=== PATIENT | female | born 1940 | race Caucasian/White ===

== ENCOUNTER 2023-10-23 14:42 | Outpatient (AMB) | payer MEDICARE, SELFPAY ==
--- NOTE | 2023-10-23 14:52 | A.OFFVIS_ITS ---
Vital Signs 10/23/23 14:54 Height 5 ft 3 in Weight 168 lb 10.458 oz BMI 29.9 BP 138/70 Blood Pressure Location Lt brachial Position Sitting Pulse 80 Pulse Source Pulse Oximeter Pulse Oximetry (%) 96 Oxygen Delivery Method Room Air Intake Visit Reasons: Shortness of breath Functional Mental Disability Teacher Required: No Allergies diphenhydramine [From Benadryl] Adverse Reaction (Severe, Verified 10/23/23 14:58) Hallucinations HPI Comments Details: The patient is here for pulmonary evaluation. The patient is a an 83 year woman presenting with worsening dyspnea on exertion. The patient states that she does have history sleep apnea. She been on CPAP for many years with good response. She has been very adherent to the therapy. In addition to that she had been noticing lower extremity edema. She had been on her daughter's house and all of a sudden she was having some increasing shortness of breath and at that point she called her primary care doctor who recommended she go to the ER. This was back in 08/07/2023. In the ER she did undergo a CTA which I personally reviewed with the patient. 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 In all her blood work was reassuring. A brain atretic peptide however was not checked always that I could find. The dolores isacc did have a cardiac workup with her marketing data specialist. Per the patient, the results were reassuring as well. The patient does not use inhalers. Back in 2019 when she had COVID the patient was prescribed an inhaler but she never used it. She has not had recent pulmonary function studies. She was exposed to secondhand smoke and smoking in the past. In view of the small airways disease on the CT scan will be reasonable to measure her pulmonary function studies. The patient may also be a good candidate for pulmonary rehabilitation. In the meantime she is walking on her own. During the visit we did go for brief walking oximetry. The heart rate went up to 115 beats per minute with minimal activity and dyspnea score is elevated 5/10. Pulse ox was reassuring at 98%. We did talk about diastolic dysfunction. The patient is already making dietary indiscretions avoiding salt. In addition to that she does complaint of chronic sinusitis primarily on the right side. She did have a septoplasty for septal deviation that was resulting in significant maxillary sinusitis. Although after surgeries done never really improved. Still having significant congestion. She has also exposure to mold in her house. They are currently working on removing it. Will go ahead and request allergy testing to assess for potential precipitants to her significant chronic allergic rhinitis and cough. In addition to that she undergo pulmonary function studies. Will hold off any inhalers at this time. 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 Sinusitis Allergies Social History (Updated 10/23/23 @ 14:59 by ELVIS Lafleur) Patient Tobacco Use Status: Never used Tobacco Review of Systems Const Denies fever(s) Eyes Reports no additional complaints ENT Reports nasal congestion, Reports nasal discharge, Reports nasal obstruction, Reports post nasal drip and Reports sinus pressure Card Denies chest pain, Reports palpitations and Reports dyspnea on exertion Resp Reports cough, Reports dyspnea on exertion and Denies wheezing GI Reports no additional complaints Musc Reports no additional complaints Skin/Breast Denies rash Endo Reports palpitations Hair/Lymph Reports no additional complaints Aller/Immun Denies wheezing Physical Exam Vital Signs: Last Vital Signs Pulse 80 10/23/23 14:54 BP 138/70 10/23/23 14:54 Pulse Ox 96 10/23/23 14:54 Oxygen Delivery Method Room Air 10/23/23 14:54 BMI result Body Mass Index 29.9 Const General: comfortable HEENT Head: Yes normocephalic Neck Neck: Yes supple Chest Chest palpation & inspection: normal inspection of the chest Resp Effort & Inspection: normal respiratory effort Auscultation: clear to auscultation bilaterally Cardio Rate: tachycardic Rhythm: regular rhythm Heart sounds: S1 normal heart sound present and S2 normal heart sound present GI Palpation (GI): Soft to palpation Skin General skin exam: no rashes or lesions noted Extrem General: Yes no clubbing, cyanosis or edema Assessment & Plan Assessment & Plan (1) Dyspnea: Comment: multifactorial. Possible small airways disease and underlying diastolic dysfunction with an elevated HR with minimal activity Code(s): R06.00 - Dyspnea, unspecified Category: Medical Qualifiers: Dyspnea type: dyspnea on exertion Qualified Code(s): R06.09 - Other forms of dyspnea (2) Allergies: Code(s): T78.40XA - Allergy, unspecified, initial encounter Category: Medical Qualifiers: Encounter type: initial encounter Qualified Code(s): T78.40XA - Allergy, unspecified, initial encounter (3) Sinusitis: Code(s): J32.9 - Chronic sinusitis, unspecified Category: Medical Qualifiers: Sinusitis location: maxillary Chronicity: chronic Qualified Code(s): J32.0 - Chronic maxillary sinusitis (4) WAYNE on CPAP: Code(s): G47.33 - Obstructive sleep apnea (adult) (pediatric) Category: Medical (5) Chronic cough: Code(s): R05.3 - Chronic cough Category: Medical (6) Pulmonary nodules: Comment: stable when compared to 2017 Code(s): R91.8 - Other nonspecific abnormal finding of lung field Category: Medical (7) 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, unspecified Category: Medical Plan Bloodwork/allergy testing nasal spray therapy PFTs Pulmonary rehab F/U 2 months Orders: Orders Complete Blood Count Auto Diff Today G47.33 - Obstructive sleep apnea (adult) (pediatric), J32.9 - Chronic sinusitis, unspecified, J44.89 - Other specified chronic obstructive pulmonary disease, R05.3 - Chronic cough, T78.40XA - Allergy, unspecified, initial encounter, U09.9 - Post COVID-19 condition, unspecified Immunoglobulin E Today G47.33 - Obstructive sleep apnea (adult) (pediatric), J32.9 - Chronic sinusitis, unspecified, J44.89 - Other specified chronic obstructive pulmonary disease, R05.3 - Chronic cough, T78.40XA - Allergy, unspecified, initial encounter, U09.9 - Post COVID-19 condition, unspecified Resp Allergy Profile Region I Today G47.33 - Obstructive sleep apnea (adult) (pediatric), J32.9 - Chronic sinusitis, unspecified, J44.89 - Other specified chronic obstructive pulmonary disease, R05.3 - Chronic cough, R91.1 - Solitary pulmonary nodule, T78.40XA - Allergy, unspecified, initial encounter, U09.9 - Post COVID-19 condition, unspecified Erythrocyte Sedimentation Rate Today G47.33 - Obstructive sleep apnea (adult) (pediatric), J32.9 - Chronic sinusitis, unspecified, J44.89 - Other specified chronic obstructive pulmonary disease, R05.3 - Chronic cough, T78.40XA - Allergy, unspecified, initial encounter, U09.9 - Post COVID-19 condition, unspecified Pulmonary Rehab Today G47.33 - Obstructive sleep apnea (adult) (pediatric), J32.9 - Chronic sinusitis, unspecified, J44.89 - Other specified chronic obstructive pulmonary disease, R05.3 - Chronic cough, T78.40XA - Allergy, unspecified, initial encounter, U09.9 - Post COVID-19 condition, unspecified PFT pulmonary function test Today R06.00 - Dyspnea, unspecified Medications: New fluticasone propionate 50 mcg/actuation 2 sprays intranasal DAILY 30 days 15.8 mL 11RF J31.0 - Chronic rhinitis Coding Level of Care Code New Pt Level 4 (00835) Diagnoses Dyspnea on exertion R06.09 Dyspnea type: dyspnea on exertion Allergy, initial encounter T78.40XA Encounter type: initial encounter Chronic maxillary sinusitis J32.0 Sinusitis location: maxillary Chronicity: chronic WAYNE on CPAP G47.33 Chronic cough R05.3 Pulmonary nodules R91.8 [id number] syndrome U09.9 Time Spent (min) 45
[2023-10-23 14:54] VITALS: BP 138/70; PULSE 80; O2SAT 96; BMI 29.9
== END 2023-10-23 15:30 | disposition home or self-care (01) ==
PROVIDERS: PCP Nurse Practitioner Family; Referring Provider Nurse Practitioner Family; Visit Provider Hospitalist
DX: R06.09 Other forms of dyspnea (principal); T78.40XA Allergy, unspecified, initial encounter; J32.0 Chronic maxillary sinusitis; G47.33 Obstructive sleep apnea (adult) (pediatric); R05.3 Chronic cough; R91.8 Other nonspecific abnormal finding of lung field; U09.9 Post COVID-19 condition, unspecified
CPT/HCPCS: 99204

== ENCOUNTER → 2023-10-23 14:42 | Outpatient (BNVA) | payer MEDICARE, SELFPAY | PROVIDERS: PCP Nurse Practitioner Family; Referring Provider Nurse Practitioner Family; Visit Provider Hospitalist | DX: J32.9 Chronic sinusitis, unspecified (principal); J44.89 Other specified chronic obstructive pulmonary disease; R06.02 Shortness of breath; G47.33 Obstructive sleep apnea (adult) (pediatric); R06.09 Other forms of dyspnea; J32.0 Chronic maxillary sinusitis; R91.8 Other nonspecific abnormal finding of lung field; U09.9 Post COVID-19 condition, unspecified; T78.40XA Allergy, unspecified, initial encounter; X58.XXXA Exposure to other specified factors, initial encounter; Z77.22 Contact with and (suspected) exposure to environmental tobacco smoke (acute) (chronic); Z99.89 Dependence on other enabling machines and devices | CPT/HCPCS: 99202 ==

== ENCOUNTER 2023-11-04 10:09 | Outpatient (REF) | payer MEDICARE, SELFPAY ==
[2023-11-04 10:19] LABS: MANUAL DIFF FLAG NO
[2023-11-04 11:09] LABS: Basophils Percent Auto 0.4 % (0-2); Eosinophils Absolute Auto 0.3 X10*3/uL (0.0-0.4); Eosinophils Percent Auto 4.4 % (0-4); Hematocrit 39.8 % (37.0-47.0); Hemoglobin 13.5 g/dl (12.0-16.0); Imm Gran Abs Auto 0.02 X10*3/uL (0.00-0.03); Imm Gran Pct Auto 0.3 % (0.0-0.4); Lymphocytes Absolute Auto 3.7 X10*3/uL (1.2-4.9); Lymphocytes Percent Auto 50.1 % (20-40); Mean Corpuscular HGB Conc 33.9 g/dl (31.0-35.0); Mean Corpuscular Hemoglobin 29.3 pg (27.0-33.0); Mean Corpuscular Volume 86.3 fL (80.0-98.0); Mean Platelet Volume 9.6 fL (9.4-12.3); Monocytes Absolute Auto 0.5 X10*3/uL (0.1-1.2); Monocytes Percent Auto 6.2 % (2-11); Neutrophils Absolute Auto 2.9 x10*3/uL (2.0-8.3); Neutrophils Percent Auto 38.6 % (45-73); Platelet Count 262 X10*3/uL (160-400); Red Blood Count 4.61 X10*6/uL (4.20-5.50); Red Cell Distribution Width 12.3 % (11.0-16.0); White Blood Count 7.4 X10*3/uL (4.8-10.8)
--- NOTE | 2023-11-04 11:30 | PFT_ITS ---
Flows: FEV1: 117 % of predicted at 2.15 L FVC: 134 % of predicted at 3.21 L FEV1/FVC: 67 % Bronchodilator response: Absent Volumes: Total lung capacity: 104 % of predicted at 4.86 L Residual volume: 81 % of predicted at 1.71 L Slow vital capacity: 126 % of predicted at 3.15 L Expiratory reserve volume: 101 % of predicted at 0.61 L Diffusion capacity: Mildly decreased Impression: Mild obstructive ventilatory defect with no bronchodilator response. Decreased diffusion capacity suggests emphysema. MTDD
[2023-11-04 11:48] LABS: Erythrocyte Sedimentation Rate 6 MM/HR (0-20)
[2023-11-09 02:57] LABS: Class Alternaria alternata 0; Class Aspergillus fumigatus 0; Class Bermuda Grass 0; Class Birch 0; Class Cat Dander 0; Class Cladosporium herbarum 0; Class Cockroach 0; Class Common Ragweed 0; Class Cottonwood 0; Class Derm. pterony 0; Class Dermatophagoides farinae 0; Class Dog Dander 0; Class Elm 0; Class Maple Box Elder 0; Class Mountain Cedar 0; Class Mouse Urine Protein 0; Class Mugwort 0; Class Oak 0; Class Penicillium crysogenum 0; Class Rough Pigweed 0; Class Sheep Sorrel 0; Class Sycamore 0; Class Timothy Grass 0; Class Walnut Tree 0; Class White Ash 0; Class White Mulberry 0; D001 IgE D pteronyssinus <0.10 kU/L; D002 - IgE D farinae <0.10 kU/L; E001 - IgE Cat Dander <0.10 kU/L; E005 - IgE Dog Dander <0.10 kU/L; E072-IgE Mouse Urine <0.10 kU/L; G002 IgE Bermuda Grass <0.10 kU/L; G006 - IgE Timothy Grass <0.10 kU/L; I006-IgE Cockroach, German <0.10 kU/L; Immunoglobulin E 52 kU/L (<OR=114); M001 IgE Penicillium chrysogen <0.10 kU/L; M002 - IgE Cladosporium herbar <0.10 kU/L; M003 - IgE Aspergillus fumigat <0.10 kU/L; M006 - IgE Alternaria alternat <0.10 kU/L; T001 IgE Maple/Box Elder <0.10 kU/L; T003 IgE Common Silver Birch <0.10 kU/L; T006 - IgE Cedar, Mountain <0.10 kU/L; T007 - IgE Oak, White <0.10 kU/L; T008 IgE Elm, American <0.10 kU/L; T010 - IgE Walnut <0.10 kU/L; T011 - IgE Maple Leaf Sycamore <0.10 kU/L; T014 - IgE Cottonwood <0.10 kU/L; T015 - IgE Ash, White <0.10 kU/L; T070 - IgE White Mulberry <0.10 kU/L; W001 - IgE Ragweed, Short <0.10 kU/L; W006 - IgE Mugwort <0.10 kU/L; W014 IgE Pigweed, Common <0.10 kU/L; W018 IgE Sheep Sorrel <0.10 kU/L
== END 2023-11-04 10:10 | disposition home or self-care (01) ==
LOC: HO.RESP 10:09
PROVIDERS: PCP Internal Medicine; Visit Provider Hospitalist
DX: R06.00 Dyspnea, unspecified (principal); T78.40XA Allergy, unspecified, initial encounter; J32.9 Chronic sinusitis, unspecified; J44.89 Other specified chronic obstructive pulmonary disease; U09.9 Post COVID-19 condition, unspecified; G47.33 Obstructive sleep apnea (adult) (pediatric); R05.3 Chronic cough; R91.1 Solitary pulmonary nodule
CPT/HCPCS: 36415; 82785; 85025; 85652; 86003; 94010; 94640; 94727; 94729

== ENCOUNTER → 2023-12-04 13:44 | Outpatient (REF) | payer MEDICARE, SELFPAY | LOC: HO.SL 13:44 | PROVIDERS: PCP Internal Medicine; Visit Provider Hospitalist | DX: G47.33 Obstructive sleep apnea (adult) (pediatric) (principal) | CPT/HCPCS: 95806 ==

== ENCOUNTER → 2023-12-04 19:00 | Outpatient (BNV) | payer MEDICARE, SELFPAY | PROVIDERS: PCP Internal Medicine; Visit Provider Internal Medicine | DX: G47.33 Obstructive sleep apnea (adult) (pediatric) (principal) | CPT/HCPCS: 95806 ==

== ENCOUNTER 2023-12-19 08:13 | Outpatient (AMB) | payer MEDICARE, SELFPAY ==
[2023-12-19 08:30] VITALS: BP 132/70; PULSE 71; O2SAT 98; BMI 30.3
--- NOTE | 2023-12-19 08:30 | MHC.OFFVIS ---
Vital Signs 12/19/23 08:30 Height 5 ft 3 in Weight 170 lb 13.732 oz BMI 30.3 BP 132/70 Blood Pressure Location Lt brachial Position Sitting Pulse 71 Pulse Source Pulse Oximeter Pulse Oximetry (%) 98 Oxygen Delivery Method Room Air Intake Visit Reasons: Allergies Tattoo Technician Required: No Allergies diphenhydramine [From Benadryl] Adverse Reaction (Severe, Verified 12/19/23 08:32) Hallucinations HPI Comments Details: The patient is a an 83 year woman presenting with worsening dyspnea on exertion. The patient states that she does have history sleep apnea. She been on CPAP for many years with good response. She has been very adherent to the therapy. In addition to that she had been noticing lower extremity edema. She had been on her daughter's house and all of a sudden she was having some increasing shortness of breath and at that point she called her primary care doctor who recommended she go to the ER. This was back in 08/07/2023. In the ER she did undergo a CTA which I personally reviewed with the patient. 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 In all her blood work was reassuring. A brain atretic peptide however was not checked always that I could find. The patient did have a cardiac workup with her counter cutter. Per the patient, the results were reassuring as well. The patient does not use inhalers. Back in 2019 when she had COVID the patient was prescribed an inhaler but she never used it. She has not had recent pulmonary function studies. She was exposed to secondhand smoke and smoking in the past. In view of the small airways disease on the CT scan will be reasonable to measure her pulmonary function studies. The patient may also be a good candidate for pulmonary rehabilitation. In the meantime she is walking on her own. During the visit we did go for brief walking oximetry. The heart rate went up to 115 beats per minute with minimal activity and dyspnea score is elevated 5/10. Pulse ox was reassuring at 98%. We did talk about diastolic dysfunction. The patient is already making dietary indiscretions avoiding salt. In addition to that she does complaint of chronic sinusitis primarily on the right side. She did have a septoplasty for septal deviation that was resulting in significant maxillary sinusitis. Although after surgeries done never really improved. Still having significant congestion. She has also exposure to mold in her house. They are currently working on removing it. Will go ahead and request allergy testing to assess for potential precipitants to her significant chronic allergic rhinitis and cough. In addition to that she undergo pulmonary function studies. Will hold off any inhalers at this time. 12/19/2023 the patient is here for a pulmonary follow-up visit. Overall she is doing little bit better. She is working closely with pulmonary rehabilitation and she is finding that is helping her dyspnea symptoms. The patient did have PFTs and we did review them. She appears to have a mild obstruction consistent mild COPD in addition to that the patient did not have any significant response to bronchodilators. She did have blood work done her eosinophils were slightly elevated suggesting allergies. However, no significant allergies found in her RAST panel. She is wondering all the potential allergens. She will need to get proper allergy testing for that to be further addressed. In the meantime the patient does complaint of sinus headaches and sinus pressure. Primarily in the right side which she did have surgery. She also uses a CPAP. Explained to her that using nasal CPAP will continue bloating potential secretions into her sinuses. We did talk about restarting sinus rinse prior to putting the CPAP on. Will also try to optimize her upper respiratory therapy. The patient will follow-up sometime in February. Also to note, she had a sleep study with mild WAYNE. 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 Sinusitis Allergies Social History (Updated 10/23/23 @ 14:59 by Symone King Edmundo) Patient Tobacco Use Status: Never used Tobacco Review of Systems Const Denies fever(s) Eyes Reports no additional complaints ENT Reports nasal congestion, Reports nasal discharge, Reports nasal obstruction, Reports post nasal drip and Reports sinus pressure Card Denies chest pain, Reports palpitations and Reports dyspnea on exertion Resp Reports cough, Reports dyspnea on exertion and Denies wheezing GI Reports no additional complaints Musc Reports no additional complaints Skin/Breast Denies rash Endo Reports palpitations Hair/Lymph Reports no additional complaints Aller/Immun Denies wheezing Physical Exam Vital Signs: Last Vital Signs Pulse 71 12/19/23 08:30 BP 132/70 12/19/23 08:30 Pulse Ox 98 12/19/23 08:30 Oxygen Delivery Method Room Air 12/19/23 08:30 BMI result Body Mass Index 30.3 Const General: comfortable HEENT Head: Yes normocephalic Neck Neck: Yes supple Chest Chest palpation & inspection: normal inspection of the chest Resp Effort & Inspection: normal respiratory effort Auscultation: clear to auscultation bilaterally Cardio Rate: tachycardic Rhythm: regular rhythm Heart sounds: S1 normal heart sound present and S2 normal heart sound present GI Palpation (GI): Soft to palpation Skin General skin exam: no rashes or lesions noted Extrem General: Yes no clubbing, cyanosis or edema Assessment & Plan Assessment & Plan (1) Dyspnea: Comment: multifactorial. Possible small airways disease and underlying diastolic dysfunction with an elevated HR with minimal activity Code(s): R06.00 - Dyspnea, unspecified Category: Medical Qualifiers: Dyspnea type: dyspnea on exertion Qualified Code(s): R06.09 - Other forms of dyspnea (2) Allergies: Code(s): T78.40XA - Allergy, unspecified, initial encounter Category: Medical Qualifiers: Encounter type: initial encounter Qualified Code(s): T78.40XA - Allergy, unspecified, initial encounter (3) Sinusitis: Code(s): J32.9 - Chronic sinusitis, unspecified Category: Medical Qualifiers: Chronicity: chronic Sinusitis location: maxillary Qualified Code(s): J32.0 - Chronic maxillary sinusitis (4) Asthma-COPD overlap syndrome: Comment: mild obstruction on PFTs Code(s): J44.89 - Other specified chronic obstructive pulmonary disease Category: Medical (5) WAYNE on CPAP: Code(s): G47.33 - Obstructive sleep apnea (adult) (pediatric) Category: Medical (6) Chronic cough: Code(s): R05.3 - Chronic cough Category: Medical (7) Pulmonary nodules: Comment: stable when compared to 2017 Code(s): R91.8 - Other nonspecific abnormal finding of lung field Category: Medical Plan nasal spray therapy, change from Fluticasone to Dymista start Singulair 1/2 tab first, then increase if needed consider DANIEL as needed consider pseudophed continue Pulmonary rehab F/U 2-3 months Medications: New montelukast 10 mg PO DAILY 30 days 30 tabs 11RF J45.909 - Unspecified asthma, uncomplicated azelastine-fluticasone 137-50 mcg/spray (Dymista) administer into each nostril 1 spray intranasal BID 30 days 23 grams 0RF Coding Level of Care Code Est Pt Level 4 (92933) Diagnoses Dyspnea on exertion R06.09 Dyspnea type: dyspnea on exertion Allergy, initial encounter T78.40XA Encounter type: initial encounter Chronic maxillary sinusitis J32.0 Chronicity: chronic Sinusitis location: maxillary Asthma-COPD overlap syndrome J44.89 WAYNE on CPAP G47.33 Chronic cough R05.3 Pulmonary nodules R91.8 Time Spent (min) 16
== END 2023-12-19 08:53 | disposition home or self-care (01) ==
PROVIDERS: PCP Internal Medicine; Visit Provider Hospitalist
DX: R06.09 Other forms of dyspnea (principal); T78.40XA Allergy, unspecified, initial encounter; J32.0 Chronic maxillary sinusitis; J44.89 Other specified chronic obstructive pulmonary disease; G47.33 Obstructive sleep apnea (adult) (pediatric); R05.3 Chronic cough; R91.8 Other nonspecific abnormal finding of lung field
CPT/HCPCS: 99214

== ENCOUNTER → 2023-12-19 08:13 | Outpatient (BNVA) | payer MEDICARE, SELFPAY | PROVIDERS: PCP Internal Medicine; Visit Provider Hospitalist | DX: J44.89 Other specified chronic obstructive pulmonary disease (principal); J32.0 Chronic maxillary sinusitis; G47.33 Obstructive sleep apnea (adult) (pediatric); R05.3 Chronic cough; R91.8 Other nonspecific abnormal finding of lung field; Z99.89 Dependence on other enabling machines and devices; Z77.22 Contact with and (suspected) exposure to environmental tobacco smoke (acute) (chronic); Z87.891 Personal history of nicotine dependence | CPT/HCPCS: 99212 ==

== ENCOUNTER 2024-02-19 10:56 | Outpatient (AMB) | payer MEDICARE, SELFPAY ==
--- NOTE | 2024-02-19 11:00 | MHC.OFFVIS ---
Vital Signs 02/19/24 11:01 Height 5 ft 3 in Weight 171 lb BMI 30.3 BP 128/64 Blood Pressure Location Rt brachial Position Sitting Pulse 94 Pulse Source Doppler Pulse Oximetry (%) 99 Oxygen Delivery Method Room Air Intake Visit Reasons: Shortness of breath Allergies diphenhydramine [From Benadryl] Adverse Reaction (Severe, Verified 12/19/23 08:32) Hallucinations HPI Comments Details: The patient is a an 84 year woman presenting with worsening dyspnea on exertion. The patient states that she does have history sleep apnea. She been on CPAP for many years with good response. She has been very adherent to the therapy. In addition to that she had been noticing lower extremity edema. She had been on her daughter's house and all of a sudden she was having some increasing shortness of breath and at that point she called her primary care doctor who recommended she go to the ER. This was back in 08/07/2023. In the ER she did undergo a CTA which I personally reviewed with the patient. 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 In all her blood work was reassuring. A brain atretic peptide however was not checked always that I could find. The patient did have a cardiac workup with her accounting clerk. Per the patient, the results were reassuring as well. The patient does not use inhalers. Back in 2019 when she had COVID the patient was prescribed an inhaler but she never used it. She has not had recent pulmonary function studies. She was exposed to secondhand smoke and smoking in the past. In view of the small airways disease on the CT scan will be reasonable to measure her pulmonary function studies. The patient may also be a good candidate for pulmonary rehabilitation. In the meantime she is walking on her own. During the visit we did go for brief walking oximetry. The heart rate went up to 115 beats per minute with minimal activity and dyspnea score is elevated 5/10. Pulse ox was reassuring at 98%. We did talk about diastolic dysfunction. The patient is already making dietary indiscretions avoiding salt. In addition to that she does complaint of chronic sinusitis primarily on the right side. She did have a septoplasty for septal deviation that was resulting in significant maxillary sinusitis. Although after surgeries done never really improved. Still having significant congestion. She has also exposure to mold in her house. They are currently working on removing it. Will go ahead and request allergy testing to assess for potential precipitants to her significant chronic allergic rhinitis and cough. In addition to that she undergo pulmonary function studies. Will hold off any inhalers at this time. 12/19/2023 the patient is here for a pulmonary follow-up visit. Overall she is doing little bit better. She is working closely with pulmonary rehabilitation and she is finding that is helping her dyspnea symptoms. The patient did have PFTs and we did review them. She appears to have a mild obstruction consistent mild COPD in addition to that the patient did not have any significant response to bronchodilators. She did have blood work done her eosinophils were slightly elevated suggesting allergies. However, no significant allergies found in her RAST panel. She is wondering all the potential allergens. She will need to get proper allergy testing for that to be further addressed. In the meantime the patient does complaint of sinus headaches and sinus pressure. Primarily in the right side which she did have surgery. She also uses a CPAP. Explained to her that using nasal CPAP will continue bloating potential secretions into her sinuses. We did talk about restarting sinus rinse prior to putting the CPAP on. Will also try to optimize her upper respiratory therapy. The patient will follow-up sometime in February. Also to note, she had a sleep study with mild WAYNE. 02/19/2024 the patient is here for a pulmonary follow-up visit. She is complaining about worsening sinus congestion. She has been having some difficulty specially based on the fact that she is using CPAP. She went to an urgent care and she was diagnosed with allergies and started on allergy medication although did not help. Still having significant sinus pressure. Sometimes which she rinses since her sinuses with saline it causes significant burning primarily in the back of her throat. She does have an ENT doctor that she sees in [place] and she will be seen him in a month. In the meantime will start treating her for sinusitis. If the patient is no better she can always come in and get sinus x-rays and also chest x-ray. The patient is okay holding her CPAP while she is recovering from his sinusitis. When she feels better she can go back on using CPAP as is affecting beneficial. She is tolerating the F30 mask well. She can also consider the F 40 mask in the future. 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 Sinusitis Allergies Social History (Updated 10/23/23 @ 14:59 by ELVIS Lafleur) Patient Tobacco Use Status: Never used Tobacco Review of Systems Const Denies fever(s) Eyes Reports no additional complaints ENT Reports nasal congestion, Reports nasal discharge, Reports nasal obstruction, Reports post nasal drip and Reports sinus pressure Card Denies chest pain, Reports palpitations and Reports dyspnea on exertion Resp Reports cough, Reports dyspnea on exertion and Denies wheezing GI Reports no additional complaints Musc Reports no additional complaints Skin/Breast Denies rash Endo Reports palpitations Hair/Lymph Reports no additional complaints Aller/Immun Denies wheezing Physical Exam Vital Signs: Last Vital Signs Pulse 94 02/19/24 11:01 BP 128/64 02/19/24 11:01 Pulse Ox 99 02/19/24 11:01 Oxygen Delivery Method Room Air 02/19/24 11:01 BMI result Body Mass Index 30.3 Const General: comfortable HEENT Head: Yes normocephalic General nose exam: Abnormal mucous membranes and turbinates present erythematous Face and sinus: Yes sinus tenderness Neck Neck: Yes supple Chest Chest palpation & inspection: normal inspection of the chest Resp Effort & Inspection: normal respiratory effort Auscultation: clear to auscultation bilaterally Cardio Rate: tachycardic Rhythm: regular rhythm Heart sounds: S1 normal heart sound present and S2 normal heart sound present GI Palpation (GI): Soft to palpation Skin General skin exam: no rashes or lesions noted Extrem General: Yes no clubbing, cyanosis or edema Assessment & Plan Assessment & Plan (1) Dyspnea: Comment: multifactorial. Possible small airways disease and underlying diastolic dysfunction with an elevated HR with minimal activity Code(s): R06.00 - Dyspnea, unspecified Category: Medical Qualifiers: Dyspnea type: dyspnea on exertion Qualified Code(s): R06.09 - Other forms of dyspnea (2) Allergies: Code(s): T78.40XA - Allergy, unspecified, initial encounter Category: Medical Qualifiers: Encounter type: initial encounter Qualified Code(s): T78.40XA - Allergy, unspecified, initial encounter (3) Sinusitis: Code(s): J32.9 - Chronic sinusitis, unspecified Category: Medical Qualifiers: Chronicity: chronic Sinusitis location: maxillary Qualified Code(s): J32.0 - Chronic maxillary sinusitis (4) Asthma-COPD overlap syndrome: Comment: mild obstruction on PFTs Code(s): J44.89 - Other specified chronic obstructive pulmonary disease Category: Medical (5) WAYNE on CPAP: Code(s): G47.33 - Obstructive sleep apnea (adult) (pediatric) Category: Medical (6) Chronic cough: Code(s): R05.3 - Chronic cough Category: Medical (7) Pulmonary nodules: Comment: stable when compared to 2017 Code(s): R91.8 - Other nonspecific abnormal finding of lung field Category: Medical Plan conitnue CPAP, F30 consider F40 nasal spray therapy, change from Fluticasone to Dymista Singulair consider DANIEL as needed start Doxy start prednisone low taper ok to hold CPAP while dealing with sinusitis completed Pulmonary rehab sinus xray if no better ENT f/u in [place] F/U 6 months Orders: Orders XR sinus min 3V Today J32.0 - Chronic maxillary sinusitis Medications: New doxycycline monohydrate 100 mg PO BID 14 days 28 tabs 0RF prednisone PO daily; Take 2 tabs daily x 5 days, then 1 tab daily x 5 days 10 days 15 tabs 0RF Coding Level of Care Code Est Pt Level 4 (97467) Diagnoses Dyspnea on exertion R06.09 Dyspnea type: dyspnea on exertion Allergy, initial encounter T78.40XA Encounter type: initial encounter Chronic maxillary sinusitis J32.0 Chronicity: chronic Sinusitis location: maxillary Asthma-COPD overlap syndrome J44.89 WAYNE on CPAP G47.33 Chronic cough R05.3 Pulmonary nodules R91.8 Time Spent (min) 16
[2024-02-19 11:01] VITALS: BP 128/64; PULSE 94; O2SAT 99; BMI 30.3
== END 2024-02-19 13:20 | disposition home or self-care (01) ==
PROVIDERS: PCP Nurse Practitioner Family; Visit Provider Hospitalist
DX: R06.09 Other forms of dyspnea (principal); T78.40XA Allergy, unspecified, initial encounter; J32.0 Chronic maxillary sinusitis; J44.89 Other specified chronic obstructive pulmonary disease; G47.33 Obstructive sleep apnea (adult) (pediatric); R05.3 Chronic cough; R91.8 Other nonspecific abnormal finding of lung field
CPT/HCPCS: 99214

== ENCOUNTER → 2024-02-19 10:56 | Outpatient (BNVA) | payer MEDICARE, SELFPAY | PROVIDERS: PCP Nurse Practitioner Family; Visit Provider Hospitalist | DX: R06.09 Other forms of dyspnea (principal); T78.40XA Allergy, unspecified, initial encounter; J32.0 Chronic maxillary sinusitis; G47.33 Obstructive sleep apnea (adult) (pediatric); J44.89 Other specified chronic obstructive pulmonary disease; R05.3 Chronic cough; R91.8 Other nonspecific abnormal finding of lung field; Z99.89 Dependence on other enabling machines and devices | CPT/HCPCS: 99212 ==

== ENCOUNTER 2024-03-06 08:41 | Outpatient (REF) | payer MEDICARE, SELFPAY ==
--- NOTE | ~2024-03-06 | XR_ITS ---
EXAMINATION: XR CHEST CLINICAL INFORMATION: R05.3 - Chronic cough. COMPARISON: 08/10/2021 x-ray chest, 10/15/2021 CT chest. TECHNIQUE: 3 views of the chest. FINDINGS: There is no gross pneumothorax. Lung volumes are low. Heart size within normal limits. There are multiple small pulmonary nodules, some of which were demonstrated on prior chest radiograph of 08/10/[address] scan of 10/15/2021. There appears to be increased nodularity in the lower right lung, although CT scan would be more sensitive for evaluation of pulmonary nodules. Redemonstration of prominence of the sondra with bilateral peribronchial cuffing. Redemonstration of old healed left 10th and 11th rib fractures. Multilevel degenerative changes in the thoracic spine. No significant pleural effusion. XR/XR chest 2V IMPRESSION: 1. Multiple small pulmonary nodules, some of which were demonstrated on prior chest radiograph of 08/10/[address] scan of 10/15/2021. There appears to be increased nodularity in the lower right lung, although CT scan would be more sensitive for evaluation of pulmonary nodules. 2. Redemonstration of prominence of the sondra with bilateral peribronchial cuffing. 3. CT scan of the chest could be considered for further evaluation. This study was presented today March 06, 2024 for interpretation. Stat results provided at this time as requested by referring provider. Electronically signed by: Fifi Ibarra MD 03/06/2024 10:03 AM [facility] [place]
--- NOTE | ~2024-03-06 | XR_ITS ---
EXAMINATION: XR SINUSES CLINICAL INFORMATION: J32.0 - Chronic maxillary sinusitis. COMPARISON: None available. TECHNIQUE: 4 views of the sinuses were obtained. FINDINGS: Frontal sinuses are clear. No air-fluid levels appreciated in the maxillary sinuses. Mild rightward deviation of the nasal septum. XR/XR sinus min 3V IMPRESSION: 1. No air-fluid levels appreciated in the maxillary sinuses. 2. Mild rightward deviation of the nasal septum. CT scan of the paranasal sinuses is strongly recommended for further evaluation if there is clinical concern as CT scan is much more sensitive for detection for intracranial/sinus pathology. This study was presented today March 06, 2024 for interpretation. Stat results provided at this time as requested by referring provider. Electronically signed by: Fifi Ibarra MD 03/06/2024 01:05 PM [facility]
== END 2024-03-06 08:42 | disposition home or self-care (01) ==
LOC: HO.XRAY 08:41
PROVIDERS: PCP Internal Medicine; Visit Provider Hospitalist
DX: J32.0 Chronic maxillary sinusitis (principal); R05.3 Chronic cough
CPT/HCPCS: 70220; 71046

== ENCOUNTER 2024-07-29 16:12 | Outpatient (REF) | payer MEDICARE, SELFPAY ==
--- NOTE | ~2024-07-29 | CT_ITS ---
CLINICAL HISTORY: R91.8 - Other nonspecific abnormal finding of lung field CT chest without contrast Comparison: CR/SR - XR CHEST 2V - 03/06/24 09:04 EST Findings: The heart is normal size. The visualized thyroid and mediastinum are unremarkable. 5 mm right lower lobe nodule on image 87. 7 mm right lower lobe nodule on image 92. 3 mm right lower lobe nodule on image 90. No consolidation or pleural effusion. Linear foci of atelectasis are incidentally noted within the bilateral lower lobes. There are minimal peripheral reticular opacities within the lungs likely secondary to scarring. The upper abdomen is unremarkable. The bones are intact. IMPRESSION: There are 3 small nodules within the right lower lobe, the largest measuring 7 mm in size. Recommend direct comparison with prior studies. If no prior examinations are available for comparison, recommend CT follow-up in 3-6 months. This document has been electronically signed by: Domonique Lott MD on 07/30/2024 19:08:24
--- OUTSIDE RECORDS SUMMARY | 2024-07-29 16:14 | XMS_ITS | Clinical Summary ---
Author Organization [facility] it Address [address] [place] [address] Care Team Providers Care Rn L And D Name Role Phone Leonarda Alcantara MD Primary Care Provider [phone] Encounters Date Type Department Care Team Description 06/06/2024 Telephone [facility] [address] [facility] [address] [place] [address] Joss Logan MD rescheduling appt from Last 3 Months Surgical History Surgery Date Site/Laterality Comments COLONOSCOPY 05/07/09 PROCEDURE: HISTORICAL COLONOSCOPY; COMMENT: diverticulosis; repeat in ten years ESOPHAGOGASTRODUODENOSCOPY 2006 [place] PROCEDURE: DC ESOPHAGOGASTRODUODENOSCOPY TRANSORAL DIAGNOSTIC; COMMENT: grade lll esophagitis ESOPHAGOGASTRODUODENOSCOPY 05/07/09 PROCEDURE: DC ESOPHAGOGASTRODUODENOSCOPY TRANSORAL DIAGNOSTIC; COMMENT: normal Medical History Medical History Date Comments Ankle swelling DX:Ankle swellin g WAYNE (obstructive sleep apnea) DX :WAYNE (obstructive sleep apnea) Insomnia DX:Insomnia Constipation DX:Constipation IFG (impaired fasting glucose) D X:IFG (impaired fasting glucose) Allergic rhinitis DX:Allergic rh initis Neck pain DX:Neck pain Meralgia paresthetica DX:Meralgi a paresthetica Breathlessness DX:Breathlessnes s; COMMENT: INCREASING Sleep apnea DX:Sleep apnea Social History Tobacco Use Types Packs/Day Years Used Date Smoking Tobacco: Never Smokeless Tobacco: Never Alcohol Use Standard Drinks/Week Comments Yes 0 (1 standard drink = 0.6 oz pur e alcohol) Comments Unknown Sex and Gender Information Value Date Recorded Sex Assigned at Not on file Legal Sex Female 11:19 AM EST Gender Identity Not on file Sexual Orientation Not on file Obstetrics History Last Filed Vital Signs Vital Sign Reading Time Taken Comments Blood Pressure 154/74 11/07/2023 10:54 AM EDT Pulse 76 08/22/2023 12:54 PM EDT Temperature - - Respiratory Rate - - Oxygen Saturation - - Inhaled Oxygen Concentration - - Weight 76.7 kg (169 lb) 11/07/2023 10:54 AM EDT Height 160 cm (5' 3 ) 11/07/2023 10:54 AM EDT Body Mass Index 29.94 11/07/2023 10:54 AM EDT Plan of Treatment Upcoming Encounters Date Type Department Care Team (Late st Contact Info) Description 09/02/2024 1:40 PM EDT Office Visit [facility] [address] [place] [id number] Jelena Reyes NP [address] [place] [address] Health Maintenance Due Date Last Done Comments DTaP,Tdap,and Td Vaccines (1 - Tdap) 1959 Pneumococcal Vaccine: 50+ Ye ars (1 of 1 - PCV) 01/04/1992 Zoster Vaccines (1 of 2) 01/04/1992 RSV Immunization Adult Patie nts (1 - 1-dose 75+ series) 2017 Cholesterol Screening (Lipid Panel) 02/15/2022 Depression Screening 02/15/2022 Falls Risk Assessment 02/15/2022 Medicare Annual Wellness Visit 02/15/2022 Social Influencers of Health Screening 02/15/2022 Hypertension/CHF/CAD Annual BMP Blood Test 10/12/2023 COVID-19 Vaccine ( - 2023-2 5 season) 2023 Influenza Vaccine (Season Ended) 2024 Osteoporosis Screening (Bone Density Screening) 08/16/2027 08/15/2017 HIB Vaccines Aged Out No longer eligi ble based on patient's age to complete this topic HPV Vaccines Aged Out No longer eligi ble based on patient's age to complete this topic Hepatitis A Vaccines Aged Out No long er eligible based on patient's age to complete this topic Hepatitis B Vaccines Aged Out No long er eligible based on patient's age to complete this topic IPV Vaccines Aged Out No longer eligi ble based on patient's age to complete this topic MMR Vaccines Aged Out No longer eligi ble based on patient's age to complete this topic Meningococcal ACWY Vaccine Aged Out N o longer eligible based on patient's age to complete this topic Meningococcal B Vaccine Aged Out No l onger eligible based on patient's age to complete this topic RSV Immunization Patients Un jos 20 months Aged Out No longer eligible b ased on patient's age to complete this topic Varicella Vaccines Aged Out No longer eligible based on patient's age to complete this topic Procedures Procedure Name Priority Date/Time Associated Diagnosis Comments [facility] DEXA AXIAL SKELETON Routine 08/15/2017 2:06 PM EDT Encounter for screening for osteoporosis from Last 3 Months or Most Recently Relevant to Health Maintenance Results * [facility] DEXA AXIAL SKELETON (08/15/2017 2:06 PM EDT) Anatomical Region Laterality Modality Mammography 08/15/2017 12:5 2 PM EDT Narrative 08/15/2017 2:06 PM EDT [facility] Diagnostic Imaging Department [address] [place] [address] Patient: ??MILA HURST V ?/Age/Sex: 1940 - 77 - F Unit#: ??[id number] ? Location/Status: ??SPDIMAM/REG CLI ? Mnemonic/Ordering Site: ??MAMDEXAAX/SPMAM Ordering Physician: ??LEONARDA ALCANTARA MD Vito Dexa Axial Skeleton - 08/15/17 - 8613 HISTORY: ??The patient is a 77-year-old postmenopausal female with clinical concern for metabolic bone disease. FINDINGS: ??Dual energy x-ray absorptiometry of the lumbar spine and femurs is performed. The mean bone mineral density at L1-3 is 1.190 gm/cm2 which is 102% of that of young normals and 118% of that of age matched controls. This yields a T-score of 0.2 and a Z-score of 1.5 and there is therefore no evidence of osteoporosis or osteopenia here. The mean bone mineral density of the femurs bilaterally is 0.703 gm/cm2 which is 70% of that of young normals and 86% of that of age matched controls. ??This yields a T-score of -2.4 and a Z-score of -0.9 which is diagnostic of osteopenia. However, the T-score of the right femoral neck is -2.8 and that of the left femoral neck is -3.1 which is diagnostic of osteoporosis. IMPRESSION: 1. Osteoporosis. ??There has been a decrease of 3.7% in bone mineral density in the lumbar spine since the prior examination of 07/14/2015. ??There has been an increase of 2.9% in bone mineral density in the right femur and an increase of 2.2% in bone mineral density in the left femur. 2. FRAX analysis yields a 10-year probability of major osteoporotic fracture of 27.7% and a 10-year probability of hip fracture of 9.5%. Code 77175 Dictating Physician: ??TAMARA BALLARD MD Electronically Signed by: ??TAAMRA BALLARD MD Dic Date/Time: ??08/15/17 1404 Sign date/Time: ??08/15/17 140 Procedure Note Tamara Ballard MD - 03/08/2022 [facility] Diagnostic Imaging Department [address] [place] [address] Patient: MILA HURST V /Age/Sex: 1940 - 77 - F Unit#: [id number] Location/Status: SPDIMAM/REG CLI Mnemonic/Ordering Site: MAMDEXAAX/SPMAM Ordering Physician: LEONARDA ALCANTARA MD Vito Dexa Axial Skeleton - 08/15/171332 HISTORY: The patient is a 77-year-old postmenopausal female withclinical concern for metabolic bone disease. FINDINGS: Dual energy x-ray absorptiometry of the lumbar spine and femursis performed. The mean bone mineral density at L1-3 is 1.190 gm/cm2 which is102% of that of young normals and 118% of that of age matched controls. Thisyields a T-score of 0.2 and a Z-score of 1.5 and there is therefore no evidenceof osteoporosis or osteopenia here. The mean bone mineral density of the femurs bilaterally is 0.703 gm/yo3mtdon is 70% of that of young normals and 86% of that of age matched controls.This yields a T-score of -2.4 and a Z-score of -0.9 which is diagnostic of osteopenia. However, the T-score of the right femoral neck is -2.8 andthat of the left femoral neck is -3.1 which is diagnostic of osteoporosis. IMPRESSION: 1. Osteoporosis. There has been a decrease of 3.7% in bone mineraldensity in the lumbar spine since the prior examination of 07/14/2015. There has beenan increase of 2.9% in bone mineral density in the right femur and anincrease of 2.2% in bone mineral density in the left femur. 2. FRAX analysis yields a 10-year probability of major osteoporoticfracture of 27.7% and a 10-year probability of hip fracture of 9.5%. Code 68963 Dictating Physician: TAMARA BALLARD MD Electronically Signed by: TAMARA BALLARD MD Dic Date/Time: 08/15/17 140 Sign date/Time: 08/15/17 1406 us Leonarda Alcantara MD IMG BI PROCEDURES Final Result from Last 3 Months or Most Recently Relevant to Health Maintenance Insurance [employer] Care Teams Rn L And D Relationship Specialty Start Date End Date Leonarda Alcantara MD [address] [place] [address] [address] [place], [place] PCP - General 08/16/23
== END 2024-07-29 16:13 | disposition home or self-care (01) ==
LOC: HO.CT 16:12
PROVIDERS: PCP Internal Medicine; Visit Provider Hospitalist
DX: R91.8 Other nonspecific abnormal finding of lung field (principal)
CPT/HCPCS: 71250

== ENCOUNTER → 2024-07-29 16:14 | Outpatient (BNV) | payer MEDICARE, SELFPAY | PROVIDERS: PCP Internal Medicine; Visit Provider Radiology Diagnostic Radiology | DX: R91.8 Other nonspecific abnormal finding of lung field (principal) | CPT/HCPCS: 71250 ==

== ENCOUNTER 2024-08-20 10:56 | Outpatient (AMB) | payer MEDICARE, SELFPAY ==
[2024-08-20 11:00] VITALS: BP 142/58; PULSE 86; O2SAT 96; BMI 30.5
--- NOTE | 2024-08-20 11:00 | MHC.OFFVIS ---
Vital Signs 08/20/24 11:00 Height 5 ft 3 in Weight 171 lb 15.369 oz BMI 30.5 BP 142/58 H Blood Pressure Location Lt brachial Position Sitting Pulse 86 Pulse Source Pulse Oximeter Pulse Oximetry (%) 96 Oxygen Delivery Method Room Air Intake Visit Reasons: Shortness of breath Offal Baler Required: No Accompanied by: Self / Same As Patient Allergies diphenhydramine [From Benadryl] Adverse Reaction (Severe, Verified 08/20/24 11:02) Hallucinations HPI Comments Details: The patient is a an 84 year woman presenting with worsening dyspnea on exertion. The patient states that she does have history sleep apnea. She been on CPAP for many years with good response. She has been very adherent to the therapy. In addition to that she had been noticing lower extremity edema. She had been on her daughter's house and all of a sudden she was having some increasing shortness of breath and at that point she called her primary care doctor who recommended she go to the ER. This was back in 08/07/2023. In the ER she did undergo a CTA which I personally reviewed with the patient. 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 In all her blood work was reassuring. A brain atretic peptide however was not checked always that I could find. 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 Per the patient, the results were reassuring as well. The patient does not use inhalers. Back in 2019 when she had COVID the patient was prescribed an inhaler but she never used it. She has not had recent pulmonary function studies. She was exposed to secondhand smoke and smoking in the past. In view of the small airways disease on the CT scan will be reasonable to measure her pulmonary function studies. The patient may also be a good candidate for pulmonary rehabilitation. In the meantime she is walking on her own. During the visit we did go for brief walking oximetry. The heart rate went up to 115 beats per minute with minimal activity and dyspnea score is elevated 5/10. Pulse ox was reassuring at 98%. We did talk about diastolic dysfunction. The patient is already making dietary indiscretions avoiding salt. In addition to that she does complaint of chronic sinusitis primarily on the right side. She did have a septoplasty for septal deviation that was resulting in significant maxillary sinusitis. Although after surgeries done never really improved. Still having significant congestion. She has also exposure to mold in her house. They are currently working on removing it. Will go ahead and request allergy testing to assess for potential precipitants to her significant chronic allergic rhinitis and cough. In addition to that she undergo pulmonary function studies. Will hold off any inhalers at this time. 12/19/2023 the patient is here for a pulmonary follow-up visit. Overall she is doing little bit better. She is working closely with pulmonary rehabilitation and she is finding that is helping her dyspnea symptoms. The patient did have PFTs and we did review them. She appears to have a mild obstruction consistent mild COPD in addition to that the patient did not have any significant response to bronchodilators. She did have blood work done her eosinophils were slightly elevated suggesting allergies. However, no significant allergies found in her RAST panel. She is wondering all the potential allergens. She will need to get proper allergy testing for that to be further addressed. In the meantime the patient does complaint of sinus headaches and sinus pressure. Primarily in the right side which she did have surgery. She also uses a CPAP. Explained to her that using nasal CPAP will continue bloating potential secretions into her sinuses. We did talk about restarting sinus rinse prior to putting the CPAP on. Will also try to optimize her upper respiratory therapy. The patient will follow-up sometime in February. Also to note, she had a sleep study with mild WAYNE. 02/19/2024 the patient is here for a pulmonary follow-up visit. She is complaining about worsening sinus congestion. She has been having some difficulty specially based on the fact that she is using CPAP. She went to an urgent care and she was diagnosed with allergies and started on allergy medication although did not help. Still having significant sinus pressure. Sometimes which she rinses since her sinuses with saline it causes significant burning primarily in the back of her throat. She does have an ENT doctor that she sees in [place] and she will be seen him in a month. In the meantime will start treating her for sinusitis. If the patient is no better she can always come in and get sinus x-rays and also chest x-ray. The patient is okay holding her CPAP while she is recovering from his sinusitis. When she feels better she can go back on using CPAP as is affecting beneficial. She is tolerating the F30 mask well. She can also consider the F 40 mask in the future. 08/20/2024 the patient is here for a pulmonary follow-up visit. Overall she is doing about the same. Still complaining of nasal congestion and postnasal drip. Which keeps her up at nighttime because of cough. Also affects her ability to use her CPAP. She has tried multiple allergy medications without any significant improvement. She has not really seen any changes in seasons. She continues using CPAP. CPAP therapy continues to be affecting beneficial and she does not CPAP every night. She does use more than 4 hours in although she does have some sinus congestion and some nasal congestion she is able to tolerated because it does help her. Will try her on some ipratropium nasal spray to see if we can dry up some of the nasal secretions specially since it appears to be thin. In addition to that she can try the Tessalon Perles. She really would like to try to avoid inhalers if possible. In the meantime she did have a CT scan of the chest and I did personally reviewed with her. She does have evidence of some chronic bronchitis specially at the lower lung zones. In addition to that she has not 7 mm pulmonary nodule that we were able to find in a different CAT scan from 2022 from [facility] in appears to be completely stable. Therefore no additional CAT scans warranted. We will follow-up in a year's time. 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 Sinusitis Allergies Social History Patient Tobacco Use Status: Never used Tobacco Review of Systems Const Denies fever(s) Eyes Reports no additional complaints ENT Reports nasal congestion, Reports nasal discharge, Reports nasal obstruction, Reports post nasal drip and Reports sinus pressure Card Denies chest pain, Reports palpitations and Reports dyspnea on exertion Resp Reports cough, Reports dyspnea on exertion and Denies wheezing GI Reports no additional complaints Musc Reports no additional complaints Skin/Breast Denies rash Endo Reports palpitations Hair/Lymph Reports no additional complaints Aller/Immun Denies wheezing Physical Exam Vital Signs: Last Vital Signs Pulse 86 08/20/24 11:00 BP 142/58 H 08/20/24 11:00 Pulse Ox 96 08/20/24 11:00 Oxygen Delivery Method Room Air 08/20/24 11:00 BMI result Body Mass Index 30.5 Const General: comfortable HEENT Head: Yes normocephalic General nose exam: Abnormal mucous membranes and turbinates present erythematous Face and sinus: Yes sinus tenderness Neck Neck: Yes supple Chest Chest palpation & inspection: normal inspection of the chest Resp Effort & Inspection: normal respiratory effort Auscultation: clear to auscultation bilaterally Cardio Rate: tachycardic Rhythm: regular rhythm Heart sounds: S1 normal heart sound present and S2 normal heart sound present GI Palpation (GI): Soft to palpation Skin General skin exam: no rashes or lesions noted Extrem General: Yes no clubbing, cyanosis or edema Assessment & Plan Assessment & Plan (1) Dyspnea: Comment: multifactorial. Possible small airways disease and underlying diastolic dysfunction with an elevated HR with minimal activity Code(s): R06.00 - Dyspnea, unspecified Category: Medical Qualifiers: Dyspnea type: dyspnea on exertion Qualified Code(s): R06.09 - Other forms of dyspnea (2) Allergies: Code(s): T78.40XA - Allergy, unspecified, initial encounter Category: Medical Qualifiers: Encounter type: initial encounter Qualified Code(s): T78.40XA - Allergy, unspecified, initial encounter (3) Asthma-COPD overlap syndrome: Comment: mild obstruction on PFTs Code(s): J44.89 - Other specified chronic obstructive pulmonary disease Category: Medical (4) WAYNE on CPAP: Code(s): G47.33 - Obstructive sleep apnea (adult) (pediatric) Category: Medical (5) Chronic cough: Code(s): R05.3 - Chronic cough Category: Medical (6) Pulmonary nodules: Comment: stable when compared to 2017 Code(s): R91.8 - Other nonspecific abnormal finding of lung field Category: Medical Plan conitnue CPAP, F30 consider F40 nasal spray therapy, change to Ipratropium nasal spray as needed Singulair Benzonates for cough pt decline [facility] f/u in [place] F/U 12 months Medications: New benzonatate 200 mg PO BID PRN 30 caps 0RF cough 30 days benzonatate 200 mg PO BID PRN 30 caps 0RF cough 30 days ipratropium bromide administer into each nostril 2 sprays intranasal TID PRN 15 mL 6RF allergy symptoms Coding Level of Care Code Est Pt Level 4 (35468) Diagnoses Dyspnea on exertion R06.09 Dyspnea type: dyspnea on exertion Allergy, initial encounter T78.40XA Encounter type: initial encounter Asthma-COPD overlap syndrome J44.89 WAYNE on CPAP G47.33 Chronic cough R05.3 Pulmonary nodules R91.8 Time Spent (min) 16
--- OUTSIDE RECORDS SUMMARY | 2024-08-20 12:35 | XMS_ITS | Clinical Summary ---
Author Organization [facility] it Address [address] [place] [address] Care Team Providers Care Digital Community Manager Name Role Phone Leonarda Alcantara MD Primary Care Provider [phone] Encounters Date Type Department Care Team Description 06/06/2024 Telephone [facility] [address] [facility] [address] [place] [address] Joss Logan MD rescheduling appt from Last 3 Months Surgical History Surgery Date Site/Laterality Comments COLONOSCOPY 05/07/09 PROCEDURE: HISTORICAL COLONOSCOPY; COMMENT: diverticulosis; repeat in ten years ESOPHAGOGASTRODUODENOSCOPY 2006 [place] PROCEDURE: [place] ESOPHAGOGASTRODUODENOSCOPY TRANSORAL DIAGNOSTIC; COMMENT: grade lll esophagitis ESOPHAGOGASTRODUODENOSCOPY 05/07/09 PROCEDURE: IA ESOPHAGOGASTRODUODENOSCOPY TRANSORAL DIAGNOSTIC; COMMENT: normal Medical History [...] [facility] [address] [facility] [address] [place] [id number] Jelena Reyes NP [address] [place] [address] Health Maintenance Due Date Last Done Comments [...] Procedure Name Priority Date/Time Associated Diagnosis Comments [facility] DEXA AXIAL SKELETON Routine 08/15/2017 2:06 PM EDT Encounter for screening for osteoporosis from Last 3 Months or Most Recently Relevant to Health Maintenance Results * [facility] DEXA AXIAL SKELETON (08/15/2017 2:06 PM EDT) Anatomical Region Laterality Modality Mammography 08/15/2017 12:5 2 PM EDT Narrative 08/15/2017 2:06 PM EDT [facility] Diagnostic Imaging Department [address] [place] [address] Patient: ??MILA HURST V ?/Age/Sex: 1940 - 77 - F Unit#: ??[id number] ? Location/Status: ??SPDIMAM/REG CLI ? Mnemonic/Ordering Site: ??MAMDEXAAX/SPMAM Ordering Physician: ??LEONARDA ALCANTARA MD Vito Dexa Axial Skeleton - 08/15/17 - 7924 HISTORY: ??The patient is a 77-year-old postmenopausal [...] probability of hip fracture of 9.5%. Code 74247 Dictating Physician: ??TAMARA BALLARD MD Electronically Signed by: ??TAMARA BALLARD MD Dic Date/Time: ??08/15/17 1404 Sign date/Time: ??08/15/17 140 Procedure Note Tamara Ballard MD - 03/08/2022 [facility] Diagnostic Imaging Department [address] [place] [address] Patient: MILA HURST V /Age/Sex: 1940 - 77 - F Unit#: [id number] Location/Status: SPDIMAM/REG CLI Mnemonic/Ordering Site: MAMDEXAAX/SPMAM Ordering [...] density of the femurs bilaterally is 0.703 [id number] is 70% of that of young normals [...] probability of hip fracture of 9.5%. Code 54976 Dictating Physician: TAMARA BALLARD MD Electronically Signed by: TAMARA BALLARD MD Dic Date/Time: 08/15/17 140 Sign date/Time: 08/15/17 1406 us Leonarda Alcantara MD IMG BI PROCEDURES Final Result from Last 3 Months or Most Recently Relevant to Health Maintenance Insurance [employer] Care Teams Digital Community Manager Relationship Specialty Start Date End Date Leonarda Alcantara MD [address] [place] [address] [address] [place], [place] PCP - General 08/16/23
== END 2024-08-20 11:33 | disposition home or self-care (01) ==
LOC: HO.HPS 10:58
PROVIDERS: PCP Nurse Practitioner Family; Visit Provider Hospitalist
DX: R06.09 Other forms of dyspnea (principal); T78.40XA Allergy, unspecified, initial encounter; J44.89 Other specified chronic obstructive pulmonary disease; G47.33 Obstructive sleep apnea (adult) (pediatric); R05.3 Chronic cough; R91.8 Other nonspecific abnormal finding of lung field
CPT/HCPCS: 99214

== ENCOUNTER → 2024-08-20 10:56 | Outpatient (BNVA) | payer MEDICARE, SELFPAY | PROVIDERS: PCP Nurse Practitioner Family; Visit Provider Hospitalist | DX: R06.09 Other forms of dyspnea (principal); J44.89 Other specified chronic obstructive pulmonary disease; G47.33 Obstructive sleep apnea (adult) (pediatric); R05.3 Chronic cough; R91.8 Other nonspecific abnormal finding of lung field; T78.40XA Allergy, unspecified, initial encounter; X58.XXXA Exposure to other specified factors, initial encounter; Y93.9 Activity, unspecified; Y92.9 Unspecified place or not applicable; Y99.9 Unspecified external cause status; Z99.89 Dependence on other enabling machines and devices | CPT/HCPCS: 99212 ==